=== PATIENT | male | born 1995 | race Hispanic/Latino ===

== ENCOUNTER 2018-05-01 22:43 | Emergency (ER) | payer SELFPAY ==
--- NOTE | 2018-05-01 23:12 | RAD ---
TWO VIEWS OF THE CHEST: 05/01/18 COMPARISON: None. HISTORY: Cough. FINDINGS: Lungs are clear. Heart and mediastinal contours are within normal limits. No acute osseous abnormalit y. IMPRESSION: No acute findings. POS: [facility]
[2018-05-01 23:44] LABS: #Basophils 0.1 thou/uL (0.0-0.2); #Eosinphils 0.1 thou/uL (0.0-0.7); #Lymphocytes 2.2 thou/uL (1.20-3.40); #Monocytes 0.8 thou/uL (0.11-0.59); #Neutrophils 10.1 thou/uL (1.40-6.50); %Basophils 0.5 % (0.0-1.0); %Eosinophils 1.1 % (0.0-10.0); %Lymphocytes 16.7 % (21.0-51.0); %Monocytes 5.6 % (0.0-10.0); %Neutrophils 76.1 % (42.0-75.0); Hemoglobin 13.7 g/dL (14.0-18.0); Mean Corpuscular HGB CONC 33.8 g/dL (32.0-36.0); Mean Corpuscular Volume 82.8 fL (78.0-98.0); Mean Platelet Volume 5.8 fL (7.4-10.4); Platelet Count 429 thou/uL (130-400); RBC Distribution Width 12.7 % (11.5-14.5); White Blood Cell (WBC) Count 13.3 thou/uL (4.8-10.8)
[2018-05-02 00:06] LABS: ALT (SGPT) 25 U/L (8-55); AST (SGOT) 22 U/L (5-34); Albumin 4.3 g/dL (3.5-5.0); Alkaline Phosphatase 92 U/L (40-150); Anion Gap 12 mmol/L (10-20); BUN (Urea Nitrogen) 12 mg/dL (8.9-20.6); Bilirubin, Total 0.3 mg/dL (0.2-1.2); Calc. Creatinine Clearance 0 mL/min (70-130); Calcium 9.4 mg/dL (7.8-10.44); Carbon Dioxide 27 mmol/L (22-29); Chloride 105 mmol/L (98-107); Estimated GFR-MDRD 85; Globulin 4.4 g/dL (2.4-3.5); Glucose 111 mg/dL (70-105); Potassium 3.8 mmol/L (3.5-5.1); Protein, Total 8.7 g/dL (6.0-8.3); Sodium 140 mmol/L (136-145)
[2018-05-02] MEDS ORDERED: Midazolam HCl 5 mg/ml Vial ONE (01:09)
[2018-05-02] MEDS ORDERED: ISOVUE-370 76%-LOCM 1 ML ONE (15:01)
--- NOTE | 2018-05-02 15:18 | CT ---
PRELIMINARY REPORT/[facility]/EMERGENTY AFTER-HOURS PROCEDURE CT Angiography Chest With Intravenous Contrast CLINICAL HISTORY: 23 years old, male; Signs and symptoms; Cough; Cough with hemorrhage; Patient HX: M23 presents to ed C/O non productive cough for the past x3 weeks. Pt states that when he begins a coughing spell, he ge ts nauseas and vomits. Associated SX of: CRONIN, and noticed blood in his sputum. Pt states SX worsen at night. TECHNIQUE: Axial computed tomographic angiography images of the chest with intravenous contrast using pulmonary embolism protocol. MIP reconstructed images were created and reviewed. COMPARISON: No relevant prior studies available. FINDINGS: Pulmonary arteries: No acute findings. No evidence of pulmonary embolism. Aorta: No acute findings. No thoracic aortic aneurysm or dissection. Lungs: No acute findings. No mass. No consolidation. Pleural space: No effusion. No pneumothorax. Heart: No significant cardiomegaly. No pericardial effusion. Bones/joints: No acute fracture. Lower thoracic vertebrae endplate changes. Soft tissues: No acute findings. Patchy mild areas of anterior chest wall cutaneous thickening. Lymph nodes: Prominent axillary lymph nodes. Upper abdomen: No acute findings. Possible small pancreatic tail lipoma. IMPRESSION: No acute process. No evidence of pulmonary embolism. Findings described above. Thank you for allowing us to participate in the care of your patient. Dictated and Authenticated by: Pako Hare MD 05/02/2018 1:45 AM Central Time ([place] & [place]) FINAL REPORT CT PULMONARY ANGIOGRAM WITH IV CONTRAST AND 3D POSTPROCESSING: I agree with the preliminary report given by Dr. Hare of [facility]. POS: [facility]
== END 2018-05-02 02:39 | disposition home or self-care (01) ==
LOC: ERS 22:43
DX: R05 Cough (principal)
CPT/HCPCS: 36415; 71046; 71275; 80053; 85025; 85379; 93005; 94640; J2250; J7620

== ENCOUNTER 2021-02-22 22:31 | Emergency (ER) | payer OTHER ==
[2021-02-22] MEDS ORDERED: Bupivacaine 0.5% 10 ML VIAL ONE (23:07)
[2021-02-22] MEDS ORDERED: Ibuprofen 200 MG TAB ONE (23:27)
[2021-02-22] MEDS ORDERED: Acetaminophen 500 MG TAB ONE (23:27)
== END 2021-02-22 23:37 | disposition home or self-care (01) ==
LOC: ERS 22:31
DX: L02.416 Cutaneous abscess of left lower limb (principal)
CPT/HCPCS: 10060; J3490

== ENCOUNTER 2025-04-18 19:34 | Emergency (ER) | payer OTHER ==
[~2025-04-18 19:34] MED LIST: Iopamidol-370 76% 500 ML MDV (1 ML CHARGE) ONE
[2025-04-18 20:08] LABS: #Basophils 0.03 10x3/uL (0.0-0.2); #Eosinophils 0.37 10x3/uL (0.0-0.7); #Monocytes 0.76 10x3/uL (0.11-0.59); #Neutrophils 6.68 10x3/uL (1.40-6.50); %Basophils 0.3 % (0.0-1.0); %Eosinophils 3.6 % (0.0-10.0); %Lymphocytes 23.7 % (21.0-51.0); %Monocytes 7.4 % (0.0-10.0); %Neutrophils 64.5 % (42.0-75.0); Hematocrit 43.6 % (42.0-52.0); Hemoglobin 14.2 g/dL (14.0-18.0); Mean Corpuscular Hemoglobin 26.4 pg (27.0-31.0); Mean Corpuscular Volume 81.2 fL (78.0-98.0); Platelet Count 308 10x3/uL (130-400); Red Blood Cell (RBC) Count 5.37 mill/uL (4.70-6.10); White Blood Cell (WBC) Count 10.34 10x3/uL (4.8-10.8)
[2025-04-18] MEDS ORDERED: Dicyclomine 20 MG TAB ONE (20:21)
[2025-04-18] MEDS ORDERED: Ketorolac Tromethamine 30 MG (1 mL) VIAL ONE (20:22)
[2025-04-18] MEDS ORDERED: Ondansetron PF 4 MG/2 ML Vial ONE (20:22)
[2025-04-18 20:24] LABS: ALT (SGPT) 27 U/L (Less than 45); AST (SGOT) 24 U/L (11-34); Albumin 4.0 g/dL (3.1-4.5); Alkaline Phosphatase 78 U/L (40-110); Anion Gap 14 mmol/L (10-20); BUN (Urea Nitrogen) 13 mg/dL (8.9-20.6); Bilirubin, Total 0.4 mg/dL (0.3-1.2); Calc. Creatinine Clearance 0 mL/min (70-130); Calcium 9.3 mg/dL (7.8-10.44); Carbon Dioxide 22 mmol/L (22-29); Chloride 106 mmol/L (98-107); Globulin 4.1 g/dL (2.4-3.5); Glucose 173 mg/dL (70-105); Lipase 20 U/L (8-78); Potassium 3.8 mmol/L (3.5-5.1); Sodium 138 mmol/L (136-145)
[2025-04-18] MEDS ORDERED: Famotidine/PF 20 mg/2ml Vial ONE (21:23)
[2025-04-18 21:58] LABS: Bacteria/HPF None Seen HPF (None Seen); CAUTI Indications for Culture Pelvic or flank pain; Glucose, Urine (Dipstick) 30 mg/dL (Negative); Leukocyte Negative Leu/uL (Negative); Protein, Urine (Dipstick) 10 mg/dL (Neg-Trace); RBC/HPF None Seen HPF (0-3); Specific Gravity, Urine 1.029 (1.002-1.036); WBC/HPF 0-3 HPF (0-3)
[2025-04-18 22:01] LABS: Urine Culture Reflex No No
== END 2025-04-18 23:12 | disposition home or self-care (01) ==
LOC: ERS 19:34
DX: A08.4 Viral intestinal infection, unspecified (principal); E11.9 Type 2 diabetes mellitus without complications
CPT/HCPCS: 36415; 74177; 80053; 81001; 83690; 85025; 93005; 96374; 96375; J1308; J1885; J2270; J2405; Q9967